=== PATIENT | female | born 1975 | race Caucasian/White ===

== ENCOUNTER 2016-12-30 13:06 | Emergency (ER) | payer OTHER | END 2016-12-30 18:07 | disposition home or self-care (01) | LOC: ER 13:06 | DX: N83.202 Unspecified ovarian cyst, left side (principal); N83.201 Unspecified ovarian cyst, right side; N73.9 Female pelvic inflammatory disease, unspecified; N30.00 Acute cystitis without hematuria; F17.200 Nicotine dependence, unspecified, uncomplicated | CPT/HCPCS: 36415; 76830; 80053; 81001; 84703; 85025; 87491; 87591 ==